=== PATIENT | male | born 1985 | race Two or more races ===

== ENCOUNTER 2018-08-02 20:09 | Inpatient (IN) | payer MEDICARE, MEDICAID ==
[~2018-08-02] VITALS: Ht 182.9 cm; Wt 86.2 kg
[2018-08-02] MEDS ORDERED: MORPHINE SULFATE INJ 2 MG/ML DISP.SYRIN IV ONE (20:30)
[2018-08-02] MEDS ORDERED: ONDANSETRON HCL/PF 4 MG/2 ML VIAL IVP ONE (20:30)
[2018-08-02 20:39] LABS: BASOPHILS % (AUTO) 0.5 % (0.0-2.0); EOSINOPHILS % (AUTO) 1.5 % (0.0-6.0); HEMATOCRIT 37 % (39-51); HEMOGLOBIN 12.1 g/dL (13.5-17.5); LYMPHOCYTES # (AUTO) 1.2 /CMM (0.8-4.8); LYMPHOCYTES % (AUTO) 21.8 % (20.0-44.0); MEAN CORPUSCULAR HGB CONC 33 g/dl (31.0-36.0); MEAN CORPUSCULAR VOLUME 89 fL (80-96); MONOCYTES # (AUTO) 0.5 /CMM (0.1-1.30); MONOCYTES % (AUTO) 9.3 % (2.0-12.0); NEUTROPHILS # (AUTO) 3.7 /CMM (1.8-8.9); NEUTROPHILS % (AUTO) 66.9 % (43.0-81.0); PLATELET COUNT (AUTO) 303 /CMM (150-450); RDW COEFFICIENT OF VARIATION 15.2 (11.5-15.0); WHITE BLOOD COUNT (AUTO) 5.5 K/uL (4.3-11.0)
[2018-08-02 20:49] LABS: CALCIUM, SERUM 8.1 mg/dL (8.5-10.1); CREATININE 4.4 mg/dL (0.6-1.3); POTASSIUM 3.8 mmol/L (3.5-5.1)
[2018-08-02 20:55] LABS: INR 0.92 (0.85-1.15)
[2018-08-02 20:57] LABS: TROPONIN I 0.086 ng/mL (0.00-0.056)
[2018-08-02] MEDS ORDERED: MORPHINE SULFATE INJ 4 MG/ML DISP.SYRIN ONE (21:06)
[2018-08-02] MEDS ORDERED: ONDANSETRON HCL/PF 4 MG/2 ML VIAL ONE (21:06)
--- NOTE | 2018-08-02 21:22 | NUR ---
BB RA C/O GEN CP/HEADACHE/HTN/TACHY FOLLOWING DIALYSIS. PT AAOX3. PT STS CP /. DENIES SOB, DIZZINESS, N/V, ARM/JAW PAIN @ THIS TIME. PLACED ON MANUFACTURING SCHEDULER, ST. PT SEEN & EVAL'D BY DR. SHELBY. MEDICATED FOR PAIN PER ERMD ORDER, PT JORDIN WELL. WILL CONT TO MONITOR.
[2018-08-02] MEDS ORDERED: ASPIRIN 325 MG TABLET PO ONE (22:00)
--- NOTE | 2018-08-02 22:00 | NUR ---
PT RESTING EYES CLOSED, EASILY AWAKEN BY VERBAL STIMULI. DENIES CP, SOB, DIZZINESS, N/V, ARM/JAW PAIN @ THIS TIME. WILL CONT TO MONITOR.
[2018-08-02] MEDS ORDERED: ONDANSETRON HCL/PF 4 MG/2 ML VIAL IVP PRN (23:00)
[2018-08-02] MEDS ORDERED: NITROGLYCERIN 0.4 MG/TAB BOTTLE SL PRN (23:00)
[2018-08-02] MEDS ORDERED: MORPHINE SULFATE INJ 2 MG/ML DISP.SYRIN IV PRN (23:00)
[2018-08-02 23:30] VITALS: BP_SYST 190; BP_DIAS 118; BP_DIAS 18
[2018-08-02] MEDS: CARVEDILOL 6.25 MG TABLET PO SCH (23:47)
--- NOTE | 2018-08-03 | NUR ---
TELE NOTES RECEIVED PT FROM E.R AT 2330 VIA [facility] PT A/O X4, TOLERATING ROOM AIR 98%, NO COMPLAIN OF PAIN AT THIS TIME. ADMIT TO TELE. RCW CATH FOR DIALYSIS SITE INTACT NO S/S OF BLEEDING. RESPIRATIONS EVEN AND UNLABORED, NO COMPLAIN OF CHEST PAIN, KEPT CLEAN AND DRY AND COMFORT. SAFETY MEASURES IN PLACE. WILL CONTINUE TO MONITOR.
[2018-08-03] MEDS ORDERED: CARV12.52 PO (00:02)
[2018-08-03] MEDS ORDERED: GABA-534 PO (00:02)
[2018-08-03] MEDS ORDERED: CALC667C6 PO (00:02)
[2018-08-03] MEDS ORDERED: NIFE30TA91 PO (00:02)
[2018-08-03] MEDS ORDERED: SIMV20TA6 PO (00:02)
[2018-08-03] MEDS ORDERED: CHOL20004 PO (00:02)
[2018-08-03] MEDS ORDERED: ESCI10TA PO (00:02)
[2018-08-03] MEDS ORDERED: FURO-144 PO (00:02)
--- NOTE | 2018-08-03 00:15 | NUR ---
SPOKE TO DR. LIN RELAYED LATEST BP OF 171/107 DESPITE GIVING CARVEDILOL AND REMINDED TO CHECK THE MEDICATION RECONCILIATION . PER DR LIN GIVE NOW HYDRALAZINE 25 MG PO NOW ONCE NOTED AND CARRIED OUT READ BACK AND VERIFIED ORDERS.
[2018-08-03] MEDS ORDERED: hydrALAZINE HCL 25 MG TABLET PO SCH (00:30)
[2018-08-03] MEDS ORDERED: hydrALAZINE HCL 10 MG TABLET PO ONE (00:30)
[2018-08-03 01:00] VITALS: BP 155/90
[2018-08-03 04:00] VITALS: BP 147/92
--- NOTE | 2018-08-03 06:07 | NUR ---
LABORER PIPELINES CLOSING NOTES ASLEEP AND EASILY AWAKEN, STABLE, NOT IN DISTRESS. SR 78 TOLERATING ROOM AIR 99%, RESPIRATION EVEN AND UNLABORED. KEPT CLEAN AND DRY AND COMFORTABLE, ALL NURSING CARE RENDERED. NEEDS ATTENDED AND ANTICIPATED. NO COMPLAIN OF PAIN AT THIS TIME. NO N/V ON LOW BED AT ALL TIMES TO ENSURE SAFETY. SAFE HAZARD FREE ENVIRONMENT PROVIDED. CALL LIGHT WITHIN EASY TO REACH. PT REFUSED SKIN ASSESSMENT PER PATIENT HE DOESNT HAVE WOUND. WILL ENDORSE NEXT SHIFT CONTINUITY OF CARE.
[2018-08-03 07:00] LABS: CALCIUM, SERUM 8.1 mg/dL (8.5-10.1); CREATININE 5.5 mg/dL (0.6-1.3); PHOSPHORUS 5.8 mg/dL (2.5-4.9); POTASSIUM 3.8 mmol/L (3.5-5.1)
--- NOTE | 2018-08-03 07:10 | NUR ---
ELECTRICIAN CONSTRUCTOR SUPERVISOR INITIAL NOTES Report received. Patient received in bed, awake, and on the phone. Alert and oriented x3, verbally responsive. Denies any pain at the moment. No SOB/labored breathing noted. Not in any type of distress. Will continue to monitor and assess patient. Tele: SR; HR 75
[2018-08-03 07:49] LABS: BASOPHILS % (AUTO) 0.8 % (0.0-2.0); EOSINOPHILS % (AUTO) 2.5 % (0.0-6.0); HEMATOCRIT 32 % (39-51); HEMOGLOBIN 10.7 g/dL (13.5-17.5); LYMPHOCYTES % (AUTO) 24.6 % (20.0-44.0); MEAN CORPUSCULAR HGB CONC 33 g/dl (31.0-36.0); MEAN CORPUSCULAR VOLUME 92 fL (80-96); MONOCYTES % (AUTO) 12.6 % (2.0-12.0); NEUTROPHILS % (AUTO) 59.5 % (43.0-81.0); PLATELET COUNT (AUTO) 244 /CMM (150-450); RDW COEFFICIENT OF VARIATION 16.2 (11.5-15.0); RED BLOOD CELL COUNT(AUTO) 3.51 MIL/uL (4.5-6.0)
[2018-08-03 07:50] LABS: BASOPHILS # (AUTO) 0.1 /CMM (0.0-0.2); LYMPHOCYTES # (AUTO) 1.7 /CMM (0.8-4.8); MONOCYTES # (AUTO) 0.9 /CMM (0.1-1.30); NEUTROPHILS # (AUTO) 4.2 /CMM (1.8-8.9)
[2018-08-03 08:00] VITALS: BP 151/96
--- NOTE | 2018-08-03 08:50 | NUR ---
TEAR DOWN MATCHER NOTES Polls Or Surveys Interviewer at bedside.
[2018-08-03] MEDS ORDERED: ASPIRIN 81 MG TAB.CHEW PO SCH (09:00)
[2018-08-03] MEDS: hydrALAZINE HCL 10 MG TABLET PO SCH ×2 (09:01→13:00)
[2018-08-03] MEDS: CARVEDILOL 6.25 MG TABLET PO SCH (09:01)
--- NOTE | 2018-08-03 10:51 | NUR ---
Social service consult requested by Dr. Mohamud for possible homelessness. Pt. is a 33 year old male who was admitted to [facility] for chest pain. Pt. arrived to [facility] from his dialysis center in [place]. SANDY and family preservation caseworker Tamika Oneill met with pt. bedside. Pt. is alert and oriented x 4. Pt. has tattoos all over his neck and body. Pt. is legally blind in his left eye. Pt. is diabetic as well. Pt. is cooperative during the assessment. Pt. states he lives on and off with his family. However, pt.states he is homeless by choice. Pt. states he gets dialysis on , Mon and Saturdays at 4PM at [facility] in [place]. Pt. did not provide an emergency contact at this time. SW offered pt. residential placement and SNF placement if deemed appropriate, however pt. declined stating his girlfriend is 8 months and wants to go back to the streets. Pt. denies suicidal and homicidal ideations at this time. Pt. has a history of Depression and Schizophrenia and is currently not taking any psychotropic medications at this time. Pt. states he medicates using marijuana. Pt. is ambulatory. No other social service needs are requested at this time. SW is available, if needed.
[2018-08-03 13:00] VITALS: BP 0/0
--- NOTE | 2018-08-03 13:40 | NUR ---
MS RN - AMA NOTES Patient was anxious to leave the hospital and verbalized intention to leave voluntarily without doctor's clearance to be discharged. Explained risks vs benefits but patient decided to leave. Patient is pleasant but just anxious to leave d/t family issues with significant other. AMA form signed. Belongings and medications returned to patient. IV access removed: cath tip intact with no bleeding noted. Provider made aware. Escorted patient out to the building Addendum: 08/03/18 at 1722 by GABRIELLE MORALES RN Charge nurse and supervisor body assembly made aware
== END 2018-08-03 14:02 | disposition left against medical advice (07) | DRG 280 ==
LOC: ER 20:14 → TELE 23:06 → MED 08-03 08:56
PROVIDERS: ADMIT Internal Medicine; ATTEND Internal Medicine
DX: I21.4 Non-ST elevation (NSTEMI) myocardial infarction (principal); N18.6 End stage renal disease; I12.0 Hypertensive chronic kidney disease with stage 5 chronic kidney disease or end stage renal disease; Z99.2 Dependence on renal dialysis; D63.8 Anemia in other chronic diseases classified elsewhere; E10.40 Type 1 diabetes mellitus with diabetic neuropathy, unspecified; E10.22 Type 1 diabetes mellitus with diabetic chronic kidney disease; H54.8 Legal blindness, as defined in USA; E10.21 Type 1 diabetes mellitus with diabetic nephropathy; E10.319 Type 1 diabetes mellitus with unspecified diabetic retinopathy without macular edema; F15.90 Other stimulant use, unspecified, uncomplicated; F17.210 Nicotine dependence, cigarettes, uncomplicated
CPT/HCPCS: 36415; 71045-TC; 80048-TC; 80061-TC; 83735-TC; 84100-TC; 84484-TC; 85025-TC; 85730-TC; 87081-TC; 93307-TC; A4606; J2270; J2405; Z7610

== ENCOUNTER 2018-08-21 20:15 | Inpatient (IN) | payer MEDICARE, MEDICAID ==
[~2018-08-21] VITALS: Ht 182.9 cm; Wt 86.2 kg
[~2018-08-21 20:15] MED LIST: CALC667C6 PO; CARV12.52 PO; CHOL20004 PO; ESCI10TA PO; FURO-144 PO; GABA-534 PO; NIFE30TA91 PO; SIMV20TA6 PO
--- NOTE | 2018-08-21 20:15 | NUR ---
"CP AFTER COMPLETING DIALYSIS" PT IS HYPERTENSION AND TACHYCARDIC BUT OTHERWISE VSS NO ACUTE DISTRESS NOTED AT THIS TIME. SKIN WARM AND INTACT. RIGHT UPPER CHEST PORTACATH. BREATHING RATE WNL WITH ADEQUATE CHEST RISE/FALL. PT IS IN VISIBLE PAIN. WILL CONTINUE TO MONITOR FOR ANY CHANGES DURING THE SHIFT.
--- NOTE | 2018-08-21 20:16 | NUR ---
ER MD CROCKETT AT BEDSIDE FOR EVAL
--- NOTE | 2018-08-21 20:16 | NUR ---
May wilkins in ED - 08/21/18 at 2057 by GHISLAINE CARA CROCKETT AT BEDSIDE
[2018-08-21] MEDS ORDERED: CLONIDINE HCL 0.1 MG TABLET PO ONE (20:30)
[2018-08-21] MEDS ORDERED: ASPIRIN 81 MG TAB.CHEW PO ONE (20:30)
[2018-08-21] MEDS ORDERED: NITROGLYCERIN PACKET 1 GM PACKET TD ONE (20:30)
[2018-08-21 20:32] LABS: BASOPHILS # (AUTO) 0.1 /CMM (0.0-0.2); BASOPHILS % (AUTO) 1.3 % (0.0-2.0); EOSINOPHILS % (AUTO) 3.2 % (0.0-6.0); HEMATOCRIT 38 % (39-51); HEMOGLOBIN 12.8 g/dL (13.5-17.5); LYMPHOCYTES # (AUTO) 1.4 /CMM (0.8-4.8); LYMPHOCYTES % (AUTO) 23.9 % (20.0-44.0); MEAN CORPUSCULAR HGB CONC 33 g/dl (31.0-36.0); MEAN CORPUSCULAR VOLUME 90 fL (80-96); MONOCYTES # (AUTO) 0.5 /CMM (0.1-1.30); MONOCYTES % (AUTO) 8.2 % (2.0-12.0); NEUTROPHILS # (AUTO) 3.9 /CMM (1.8-8.9); NEUTROPHILS % (AUTO) 63.4 % (43.0-81.0); PLATELET COUNT (AUTO) 255 /CMM (150-450); RDW COEFFICIENT OF VARIATION 15.4 (11.5-15.0); RED BLOOD CELL COUNT(AUTO) 4.27 MIL/uL (4.5-6.0); WHITE BLOOD COUNT (AUTO) 6.1 K/uL (4.3-11.0)
[2018-08-21] MEDS ORDERED: CLONIDINE HCL 0.1 MG TABLET ONE (20:40)
[2018-08-21] MEDS ORDERED: NITROGLYCERIN PACKET 1 GM PACKET ONE (20:41)
[2018-08-21] MEDS ORDERED: ASPIRIN 81 MG TAB.CHEW ONE (20:41)
[2018-08-21 20:43] LABS: CALCIUM, SERUM 8.5 mg/dL (8.5-10.1); CREATININE 5.4 mg/dL (0.6-1.3); POTASSIUM 3.9 mmol/L (3.5-5.1)
[2018-08-21 20:49] LABS: ALBUMIN 2.8 g/dL (3.4-5.0); BILIRUBIN,TOTAL 0.3 mg/dL (0.2-1.0); INR 0.88 (0.85-1.15); TOTAL PROTEIN, SERUM 6.9 g/dL (6.4-8.2)
--- NOTE | 2018-08-21 20:49 | NUR ---
MAIL CALLER AT BEDSIDE
[2018-08-21 20:53] LABS: TROPONIN I 0.915 ng/mL (0.00-0.056)
[2018-08-21] MEDS ORDERED: hydrALAZINE HCL IV 20 MG VIAL IV ONE (21:00)
[2018-08-21] MEDS ORDERED: hydrALAZINE HCL IV 20 MG VIAL ONE (21:05)
--- NOTE | 2018-08-21 21:10 | NUR ---
CALLED [employer] ENLISTED ADVISOR WAS PAGED.
--- NOTE | 2018-08-21 21:48 | NUR ---
REPORT GIVEN TO JIMBO
[2018-08-21] MEDS ORDERED: Z GUARD REMEDY 2 OZ OINT TP PRN (22:00)
[2018-08-21] MEDS ORDERED: hydrALAZINE HCL IV 20 MG VIAL IV PRN (22:00)
[2018-08-21] MEDS ORDERED: GABAPENTIN 300 MG CAPSULE PO SCH (22:00)
[2018-08-21] MEDS ORDERED: HYDROCODONE/APAP 5/325MG 1 EACH TABLET PO PRN (22:00)
[2018-08-21] MEDS ORDERED: ACETAMINOPHEN 325 MG TABLET PO PRN (22:00)
[2018-08-21] MEDS ORDERED: MAG HYDROX/AL HYDROX/SIMETH 30 ML UDC PO PRN (22:00)
[2018-08-21] MEDS ORDERED: ONDANSETRON HCL/PF 4 MG/2 ML VIAL IVP PRN (22:00)
[2018-08-21] MEDS ORDERED: MORPHINE SULFATE INJ 2 MG/ML DISP.SYRIN IV PRN (22:00)
[2018-08-21] MEDS ORDERED: MAGNESIUM HYDROXIDE 30 ML UDC PO PRN (22:00)
[2018-08-21 22:22] VITALS: BP 151/86
--- NOTE | 2018-08-21 22:30 | NUR ---
GARNETT MECHANIC ADMITTING NOTES REPORT RECEIVED FROM FLO SCALES. PATIENT ARRIVED VIA GURNEY TO ROOM 118-2 W/ DX CHEST PAIN UNDER CARE OF CASH WING NP. PATIENT A/A/O X3, ABLE TO ANSWER QUESTIONS & FOLLOW SIMPLE COMMANDS. NOTED W/ STEADY GAIT WHEN AMBULATING FROM GURNEY TO BED. BREATHING EVEN & UNLABORED, TOLERATING ROOM AIR. ON TELE W/ SINUS TACH. C/O OF NON-RADIATING CHEST PAIN, 01/13. DENIES ANY HEADACHE OR DIZZINESS. DENIES SOB OR DIFFICULTY BREATHING. RIGHT AC IV #18 INTACT & PATENT W/ DRESSING CDI. NO SIGNS OF INFILTRATION NOTED. ORIENTED TO ROOM & INSTRUCTED TO USE CALL LIGHT FOR ASSISTANCE. BED LOCKED & IN LOWEST POSITION W/ BED ALARM ON. WILL CARRY OUT ADMITTING ORDERS & CONTINUE TO MONITOR PATIENT.
[2018-08-22] VITALS: BP 148/86
[2018-08-22 04:00] VITALS: BP 149/92
[2018-08-22 07:13] LABS: BASOPHILS % (AUTO) 0.7 % (0.0-2.0); HEMATOCRIT 34 % (39-51); LYMPHOCYTES # (AUTO) 1.2 /CMM (0.8-4.8); LYMPHOCYTES % (AUTO) 21.1 % (20.0-44.0); MEAN CORPUSCULAR HGB CONC 32 g/dl (31.0-36.0); MEAN CORPUSCULAR VOLUME 93 fL (80-96); MONOCYTES # (AUTO) 0.5 /CMM (0.1-1.30); MONOCYTES % (AUTO) 8.1 % (2.0-12.0); NEUTROPHILS % (AUTO) 67.1 % (43.0-81.0); PLATELET COUNT (AUTO) 215 /CMM (150-450); RDW COEFFICIENT OF VARIATION 16.5 (11.5-15.0); RED BLOOD CELL COUNT(AUTO) 3.64 MIL/uL (4.5-6.0); WHITE BLOOD COUNT (AUTO) 5.9 K/uL (4.3-11.0)
[2018-08-22 07:26] LABS: THYROID STIMULATING HORMONE 1.442 uIU/mL (0.358-3.74)
[2018-08-22 07:30] LABS: CREATININE 6.6 mg/dL (0.6-1.3); PHOSPHORUS 6.4 mg/dL (2.5-4.9); POTASSIUM 4.2 mmol/L (3.5-5.1)
[2018-08-22 08:00] VITALS: BP_SYST 104; BP_SYST 164; BP_DIAS 45; BP_DIAS 95
[2018-08-22] MEDS ORDERED: CALCIUM ACETATE 667 MG TABLET PO SCH (08:00)
[2018-08-22] MEDS ORDERED: MORPHINE SULFATE INJ 4 MG/ML DISP.SYRIN IV PRN (08:13)
[2018-08-22] MEDS ORDERED: CARVEDILOL 12.5 MG TABLET PO SCH (09:00)
[2018-08-22] MEDS ORDERED: ASPIRIN 81 MG TAB.CHEW PO SCH (09:00)
[2018-08-22] MEDS ORDERED: hydrALAZINE HCL 50 MG TABLET PO SCH (09:00)
[2018-08-22] MEDS ORDERED: FUROSEMIDE 40 MG TABLET PO SCH (09:00)
[2018-08-22] MEDS ORDERED: NIFEdipine XL (30MG) 30 MG TAB PO SCH (09:00)
[2018-08-22] MEDS ORDERED: ESCITALOPRAM OXALATE (10 MG) 10 MG TABLET PO SCH (09:00)
[2018-08-22 09:03] VITALS: BP 164/45
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
[2018-08-22] MEDS ORDERED: SIMVASTATIN 20 MG TABLET PO SCH (18:00)
== END 2018-08-22 11:34 | disposition left against medical advice (07) | DRG 280 ==
LOC: ER 20:16 → UNDOADMIN 21:51 → TELE-TD 21:51 → TELE1 22:32
PROVIDERS: ADMIT Nurse Practitioner Acute Care; ATTEND Nurse Practitioner Acute Care
DX: I21.A1 Myocardial infarction type 2 (principal); N18.6 End stage renal disease; I12.0 Hypertensive chronic kidney disease with stage 5 chronic kidney disease or end stage renal disease; I16.0 Hypertensive urgency; Z99.2 Dependence on renal dialysis; E11.65 Type 2 diabetes mellitus with hyperglycemia; E11.22 Type 2 diabetes mellitus with diabetic chronic kidney disease; Z88.8 Allergy status to other drugs, medicaments and biological substances; Z98.890 Other specified postprocedural states; Z90.49 Acquired absence of other specified parts of digestive tract; D63.8 Anemia in other chronic diseases classified elsewhere; H54.62 Unqualified visual loss, left eye, normal vision right eye; Z72.0 Tobacco use; F12.90 Cannabis use, unspecified, uncomplicated; F15.90 Other stimulant use, unspecified, uncomplicated; Z86.59 Personal history of other mental and behavioral disorders; E78.5 Hyperlipidemia, unspecified
CPT/HCPCS: 36415; 71045-TC; 80048-TC; 80061-TC; 80076-TC; 83735-TC; 84100-TC; 84443-TC; 84484-TC; 85025-TC; 85730-TC; 87081-TC; 93307-TC; A4606; G0378; J0360; Z7610